=== PATIENT | female | born 1995 | race Caucasian/White ===

== ENCOUNTER → 2019-03-25 13:32 | Outpatient (BNVA) | payer OTHER, SELFPAY | PROVIDERS: Family Provider Family Medicine; PCP Family Medicine; Referring Provider Family Medicine; Visit Provider Nurse Practitioner Family | DX: R53.83 Other fatigue (principal) | CPT/HCPCS: 87804 ==

== ENCOUNTER → 2019-07-22 15:35 | Outpatient (BNVA) | payer OTHER, SELFPAY | PROVIDERS: Family Provider Family Medicine; PCP Family Medicine; Visit Provider Nurse Practitioner | DX: R30.0 Dysuria (principal); Z71.89 Other specified counseling | CPT/HCPCS: 80053; 81000 ==

== ENCOUNTER 2021-09-16 13:45 | Emergency (ER) | payer OTHER, SELFPAY ==
[2021-09-16 14:01] VITALS: BP 127/73; PULSE 78; RESP 16; TEMP 36.9; O2SAT 97
--- NOTE | 2021-09-16 14:06 | XRR_ITS ---
PROCEDURE INFORMATION: Exam: XR Left Hand Exam date and time: 09/16/2021 2:22 PM Age: 25 years old Clinical indication: Injury or trauma; Other: Table saw; Amputation, traumatic; Left index finger; Additional info: 2nd digit amputation TECHNIQUE: Imaging protocol: Radiologic exam of the Left hand. Views: 3 or more views. COMPARISON: No relevant prior studies available. FINDINGS: Bones/joints: There is a traumatic amputation at the level of the proximal shaft of the middle phalange the index finger. The rim need bone shows comminuted fracture. New no additional bony abnormalities are seen. Soft tissues: Soft tissue edema near the proximal interphalangeal joint of the index finger. XR/XR hand LT min 3V* [id number] IMPRESSION: 1. Traumatic amputation of the index finger in the proximal aspect of the middle phalange. 2. Comminuted fracture of the remnant bone in the middle phalange. 3. Soft tissue effusion around the proximal interphalangeal joint of the middle phalange
[2021-09-16 14:09] VITALS: RESP 16
[2021-09-16] MEDS: ondansetron 2 mg/ML SDV 2 mL 4 MG IVP (14:09)
[2021-09-16] MEDS: morphine 4 mg/mL SDV 1 mL IVP (14:09)
[2021-09-16] MEDS: tetanus-dipt-pertussis 0.5 mL SDV IM (14:10)
--- NOTE | 2021-09-16 14:11 | ED_ITS ---
Documented by User: KAE Cazares 09/16/21 16:18 HPI - Extremity Injury (Upper) General: Chief Complaint: Trauma Stated Complaint: left hand injury Time Seen by Provider: 09/16/21 13:49 Source: patient and family Mode of arrival: wheelchair Limitations: no limitations History of Present Illness: Patient is a 25-year-old female who presents to ED today for evaluation of an amputation of her left index finger that she sustained just prior to arrival after using a table saw. Last tetanus is unknown. She states they looked for amputated fragment but was unable to find it. Patient is right-handed. She has no other injuries or complaints at this time. MD complaint: injury to: left and finger Onset (ago): hour(s) Other Extremity Injury: Left: fingers Other injuries: none Handedness: right Place: home Severity: severe Severity scale (1-10): >10 Context: other (amputation) Associated symptoms: Reports no associated symptoms Treatments prior to arrival: bandage Review of Systems Card: Denies: chest pain Resp: Denies: dyspnea GI: Denies: abdominal pain, nausea or vomiting Musc: Reports: extremity pain (L index finger) [facility] ED PFSH: Social History Smoking and tobacco status: never smoked Alcohol intake: never Physical Exam Const: COMMON NORMALS: patient oriented x3, no limitations and alert GENERAL APPEARANCE: cooperative and in distress (significant discomfort secondary to pain) NUTRITIONAL APPEARANCE: obese ORIENTATION/CONSCIOUSNESS: Yes awake, Yes oriented to person, Yes oriented to place and Yes oriented to time Extremity: GENERAL: Yes normal exam except as noted LEFT UPPER EXTREMITY: Yes hand & digits OTHER: pt has a complete amputation of her L index finger at the level of the middle phalanx; bleeding controlled Neuro: COMMON NORMALS: patient oriented x3 SENSORIUM/ORIENTATION: Yes alert, Yes oriented to person, Yes oriented to place and Yes oriented to time Course Consultations: Consultation #1: Dr. Rae-recommends consultation with hand surgeon regarding the need for ray resection-after speaking to Dr. Crook she graciously agrees to see patient and recommends copious irrigation, dress, and will see in office this week Consultation #2: Dr. Crook-hand surgery-states he would amputate/flap at PIP joint and would not perform ray resection unless patient preferred it Vital Signs: Vital signs: Vital Signs Temperature 98.5 F 09/16/21 14:01 Pulse Rate 69 09/16/21 16:22 Respiratory Rate 16 09/16/21 16:22 Blood Pressure 141/91 09/16/21 16:22 Pulse Oximetry 95 09/16/21 16:22 MDM - Extremity Injury (Upper) Medical Decision Making Patient is a nice 25-year-old female here for a left index finger amputation at the level of her middle phalanx. I have consulted with our orthopedic surgeon Dr. Rae as well as Dr. Crook hand surgery in [place]. Dr. Crook stated he would try to flap digit at the PIP joint and would not perform a ray resection unless the patient specifically requests. He stated finger can always be revised and ray resection can be performed at a later date if patient decides. Dr. Rae stated she will see patient in office as patient states she would like to keep as much of the finger as possible . Dr. Mckeon also evaluated patient and agrees with assessment/plan. Tetanus updated. She was given Ancef prior to discharge. Lab Data Radiology Impressions Hand X-Ray 09/16/21 14:06 IMPRESSION: 1. Traumatic amputation of the index finger in the proximal aspect of the middle phalange. 2. Comminuted fracture of the remnant bone in the middle phalange. 3. Soft tissue effusion around the proximal interphalangeal joint of the middle phalange Discharge Plan Discharge Patient Disposition: Home Clinical Impression: Amputation of left index finger Condition: Stable Prescriptions: New hydrocodone-acetaminophen 5-325 mg tablet 1 tab PO Q4H PRN (Reason: pain) Qty: 20 0RF cephalexin 500 mg capsule 500 mg PO Q6H 7 Days Qty: 28 0RF ondansetron 4 mg tablet,disintegrating 4 mg PO Q8H PRN (Reason: nausea and vomiting) Qty: 14 0RF No Action citalopram 40 mg tablet 40 mg PO DAILY 0RF norgestimate-ethinyl estradiol 0.18/0.215/0.25 mg-25 mcg tablet 1 tab PO DAILY 0RF Zyrtec 10 mg Tablet 10 mg PO DAILY 0RF Discharge Orders: Discharge ED (Routine); Ordered 09/16/21 Ordered By: Eliza Joseph Referrals: Savannah Rae MD [Physician] - Russ Chaudhary MD [Primary Care Provider] - Patient Instructions: Finger Amputation (Surgical), Finger Amputation (ED), Opioid Safety Activity Restrictions/Additional Instructions: As we discussed please contact Dr. Rae's office tomorrow morning so they can give you a date/time to be seen this week. You have been instructed on dressing changes. Fill antibiotics today and start them immediately. Coding Level of Care Code ED Receiving Weigher for Chg Fwd Exam Expanded Problem Focused Documented by User: Ronal Mckeon DO 09/16/21 16:55 HPI - Extremity Injury (Upper) General: Chief Complaint: Trauma Stated Complaint: left hand injury Time Seen by Provider: 09/16/21 13:49 [facility] ED PFSH: Social History Smoking and tobacco status: never smoked Alcohol intake: never Course ED course: I was attending emergency physician on duty when this patient was seen and evaluated by the advanced nurse practitioner. This patient suffered an injury to her nondominant left hand. Her index finger was amputated just above the proximal interphalangeal joint. Bleeding was controlled prior to arrival. The patient received appropriate treatment with antibiotics, pain control and tetanus update. Orthopedics was consulted who agreed to care for the patient in complete her revision. Patient was placed in a bulky dressing and discharged for outpatient follow-up. Agree with the plan of care as outlined. Vital Signs: Vital signs: Vital Signs Temperature 98.5 F 09/16/21 14:01 Pulse Rate 69 09/16/21 16:22 Respiratory Rate 16 09/16/21 16:22 Blood Pressure 141/91 09/16/21 16:22 Pulse Oximetry 95 09/16/21 16:22 MDM - Extremity Injury (Upper) Lab Data Radiology Impressions Hand X-Ray 09/16/21 14:06 IMPRESSION: 1. Traumatic amputation of the index finger in the proximal aspect of the middle phalange. 2. Comminuted fracture of the remnant bone in the middle phalange. 3. Soft tissue effusion around the proximal interphalangeal joint of the middle phalange Discharge Plan Discharge Patient Disposition: Home Clinical Impression: Amputation of left index finger Condition: Stable Prescriptions: New hydrocodone-acetaminophen 5-325 mg tablet 1 tab PO Q4H PRN (Reason: pain) Qty: 20 0RF cephalexin 500 mg capsule 500 mg PO Q6H 7 Days Qty: 28 0RF ondansetron 4 mg tablet,disintegrating 4 mg PO Q8H PRN (Reason: nausea and vomiting) Qty: 14 0RF No Action citalopram 40 mg tablet 40 mg PO DAILY 0RF norgestimate-ethinyl estradiol 0.18/0.215/0.25 mg-25 mcg tablet 1 tab PO DAILY 0RF Zyrtec 10 mg Tablet 10 mg PO DAILY 0RF Discharge Orders: Discharge ED (Routine); Ordered 09/16/21 Ordered By: Eliza Joseph Referrals: Savannah Rae MD [Physician] - Russ Chaudhary MD [Primary Care Provider] - Patient Instructions: Finger Amputation (Surgical), Finger Amputation (ED), Opioid Safety Activity Restrictions/Additional Instructions: As we discussed please contact Dr. Rae's office tomorrow morning so they can give you a date/time to be seen this week. You have been instructed on dressing changes. Fill antibiotics today and start them immediately. Coding Level of Care Code ED Receiving Weigher for Ayang Fwd Exam Expanded Problem Focused
[2021-09-16] MEDS: ceFAZolin 2,000 MG in sodium chloride 0.9% (plus) 50 ML 100 MG IV (14:18)
[2021-09-16 14:29] VITALS: RESP 18
[2021-09-16] MEDS: HYDROmorphone 1 mg/mL INJ 1 mL IVP ×2 (14:29→15:36)
[2021-09-16 15:36] VITALS: RESP 16
--- NOTE | 2021-09-16 16:10 | PC.NURSE ---
left 2nd finger irrigaited with 500ml of ns and dressed with xeroform, 4x4, and keshawn.
[2021-09-16 16:22] VITALS: BP 141/91; PULSE 69; RESP 16; O2SAT 95
--- NOTE | 2021-09-17 13:57 | DCPLANNER ---
Addendum entered by Amalia Perea 09/25/21 14:44: Patient had a follow up appointment scheduled for 09.17.[address] Rae at ortho - patient did attend appointment. Original Note: manager rn case had message to schedule a follow up appointment for patient with ortho. manager rn case sent patients information to the front office of ortho. Patients information will be printed and reviewed. Clinic will call patient with appointment information. Clinic will call patient with appointment information.
== END 2021-09-16 16:25 | disposition home or self-care (01) ==
PROVIDERS: Emergency Provider Physician Assistant; PCP Family Medicine
DX: S68.111A Complete traumatic metacarpophalangeal amputation of left index finger, initial encounter (principal); W27.0XXA Contact with workbench tool, initial encounter; Z23 Encounter for immunization
CPT/HCPCS: 73130; 90471; 90715; 96374; 96375; 96376; 99284; A6446; J1170; J2270; J2405

== ENCOUNTER 2021-09-18 05:38 | Day surgery (SDC) | payer OTHER, SELFPAY ==
[2021-09-17 12:58] VITALS: BMI 32.5
[2021-09-18] VITALS (9 sets, daily range): BP systolic 136–181; BP diastolic 83–118; PULSE 71–91; RESP 14–28; TEMP 36.2–36.6; O2SAT 90–97
[2021-09-18] MEDS: CELEcoxib 200 mg Capsule 400 MG PO (06:26)
[2021-09-18] MEDS: acetaminophen 1,000 MG/100 ML PIGGYBACK 400 MG IV (06:30)
[2021-09-18] MEDS: sodium chloride 0.9% 1,000 ML 30 ML IV (06:40)
--- NOTE | 2021-09-18 06:55 | W.PM.OPSUD ---
Surgery/Procedure H&P Update DATE OF PROCEDURE: September 18, 2021 DATE H&P PERFORMED: 09/17/21 H&P UPDATE INFORMATION: I have reviewed H&P completed within last 30 days, I have examined patient prior to procedure, No changes to prior documentation and H&P is in [facility] on date indicated PREOP DIAGNOSIS: Partial amputation left index finger PLANNED PROCEDURE: Operation Date: 09/18/21 07:00 Proposed Procedures p LEFT INDEX FINGER PREVISION AMPUTATION 61194,S68.11A(Left) - Savannah Rae MD Related Problem List Diagnoses (1) Amputation of left index finger:
[2021-09-18] MEDS: ceFAZolin 2,000 MG in sodium chloride 0.9% (plus) 50 ML 100 MG IV (07:02)
--- NOTE | 2021-09-18 07:57 | ANES.PREANE2 ---
Pre-Anesthetic Assessment Height/Weight: Height 1.83 m Weight 108.862 kg Temp Pulse Resp BP Pulse Ox 97.9 F 74 18 146/97 97 09/18/21 06:45 09/18/21 06:45 09/18/21 06:45 09/18/21 06:45 09/18/21 06:45 Preop Diagnosis: Partial amputation left index finger Operation Date: 09/18/21 07:00 Proposed Procedures p LEFT INDEX FINGER PREVISION AMPUTATION 60439,S68.11A(Left) - Savannah Rae MD Familial anesthetic complications: None Was Beta Juan taken within 24 hours: N/A Was Clonidine taken within 24 hours: N/A Last intake: Intake Last Liquid Date 09/17/21 Last Liquid Time 23:30 Last Solid Date 09/17/21 Last Solid Time 23:30 Social No alcohol and No tobacco Exam alert, oriented x 3, clear to auscultation bilaterally and regular rate & rhythm Airway Submandibular: within normal limits Cervical ROM: within normal limits Mallampati: Class II Dentition: full History/ROS No significant history except as noted Metabolic Morbid Obesity Anesthetic Plan ASA status: 2 Anesthesia: General Medications/Allergies Home Medications Medication Instructions Recorded Confirmed Last Taken Type citalopram 40 mg tablet 40 mg PO DAILY 03/25/19 09/18/21 09/17/21 History norgestimate 0.18 mg/0.215 mg/0.25 1 tab PO DAILY 03/25/19 09/18/21 09/17/21 History mg-ethinyl estradiol 25 mcg tablet cephalexin 500 mg capsule 500 mg PO Q6H 7 Days #28 cap 09/16/21 09/18/21 09/17/21 Rx cetirizine 10 mg tablet (Zyrtec) 10 mg PO DAILY 09/16/21 09/18/21 09/17/21 History hydrocodone 5 mg-acetaminophen 325 1 tab PO Q4H PRN #20 tab 09/16/21 09/18/21 09/17/21 Rx mg tablet ondansetron 4 mg disintegrating 4 mg PO Q8H PRN #14 tab 09/16/21 09/18/21 Unknown Rx tablet Allergies Allergy/AdvReac Type Severity Reaction Status Date / Time No Known Allergies Allergy Verified 09/17/21 12:57 PFSH Anesthesia Social History Smoking and tobacco status: never smoked Alcohol intake: never Female Reproductive History Date of last menstrual period: 09/03/21 Data Anesthesia Cardiac Studies: No Data to Display
[2021-09-18] MEDS: silvasorb gel 44.4 mL 1 APPLIC TOPICAL (08:03)
--- NOTE | 2021-09-18 08:37 | PM.OP ---
Operative Report Date of procedure: September 18, 2021 Pre-op diagnosis: Partial amputation left index finger Post-op diagnosis: same Post-op diagnosis: Partial amputation left index finger Procedure done: Revision left index finger amputation with local flap Implants: None Specimens removed/disposition: None Surgeon: Savannah Rae Electrical Design Engineer: None Anesthesia: General (Per LMA, ASA 2) Estimated blood loss (mL): 5 Tourniquet time (min): 8 (At 250 mmHg) IV fluids (mL): 400 Urine output (mL): 0 (No Duval) Complications: None Findings: Comminuted fracture of the remaining portion of the middle phalanx of the left index finger. Condition: stable Disposition: PACU (Then return to same-day surgery) Brief History: This is a new 25 year old female patient who is here today for an evaluation of her left index finger injury. She states that on 09/16/21, she was ripping a 2x4 with a table saw.? She states she looked down and noticed she had blood on her glove and the tip of her finger was gone. She states that she did not feel her finger get cut off by the saw. She states that she immediately went to the ED where her remaining finger was cleaned up and wrapped in sterile dressings. She states her pain is reproduced by touching her finger. She denies any relieving factors today. Procedure: Patient was brought to the operating theater. She was placed on the operating room table. General anesthesia per LMA, ASA 2, was administered without difficulty. Patient tolerated it well. Patient received 2 g of Ancef preoperatively as well. A tourniquet which was placed high on the arm was elevated briefly for exposure. The tourniquet time was 8 minutes at 250 mmHg. Surgical pause was performed prior to commencement of the surgical procedure. At the time of the surgical pause we identified the site and side of surgery. We also identified the patient's identity and appropriate administration of IV antibiotics. Following the surgical pause, the amputation was evaluated. Skin edges were freshened using a scalpel. Bone was evaluated and the patient was found to have a comminuted fracture of the remaining portion of the middle phalanx. It was intra-articular and displaced. The remaining bone fragments were removed. Following this, the wound was irrigated. Flexor and extensor tendons were approximated over the tip of the finger. Closure was then accomplished with the volar flap being brought up over the end of the proximal phalanx. No bone resection was accomplished from the proximal phalanx. Closure was accomplished with 3-0 nylon in an interrupted mattress type fashion. Following this, the hand was cleaned. SilvaSorb was placed. Dressing was placed consisting of a fluffed fluffs and tube gauze. The patient was returned to recovery in satisfactory condition. She will be discharged home to follow-up with me in the office. There were no complications and no specimens. Related Problem List Diagnoses (1) Amputation of left index finger:
[2021-09-18] MEDS: HYDROcodone-acetaminophen 5-325 mg Tablet 1 TAB PO (09:44)
--- NOTE | 2021-09-18 16:18 | ANE.PACU2 ---
Inpatient post-anesthesia follow up: Airway intact: Yes Vital signs: Temperature 97.2 F Pulse Rate 81 Respiratory Rate 18 Blood Pressure 136/83 Pulse Oximetry 95 Oxygen Delivery Me thod Room Air Oxygen Flow Rate 8 Fraction of Inspir ed Oxygen Hydration adequate: Yes Nausea and vomiting: No Pain level: 2 Mental status: Baseline
== END 2021-09-18 09:50 | disposition home or self-care (01) ==
PROVIDERS: PCP Family Medicine; Visit Provider Specialist
PROC: (CPT 26951; principal; 2021-09-18 07:00)
DX: S68.111A Complete traumatic metacarpophalangeal amputation of left index finger, initial encounter (principal); W31.2XXA Contact with powered woodworking and forming machines, initial encounter; E66.01 Morbid (severe) obesity due to excess calories; Z68.32 Body mass index [BMI] 32.0-32.9, adult
CPT/HCPCS: 26952; J1100; J1200; J1885; J2370; J2405; J2704; J3010; J7030

== ENCOUNTER → 2022-04-30 10:53 | Outpatient (BNVA) | payer BC, SELFPAY | PROVIDERS: PCP Family Medicine; Visit Provider Family Medicine | DX: I10 Essential (primary) hypertension (principal) | CPT/HCPCS: 80048 ==

== ENCOUNTER → 2022-10-28 13:01 | Outpatient (BNVA) | payer BC, MEDICAID, SELFPAY | PROVIDERS: PCP Family Medicine; Visit Provider Family Medicine | DX: I10 Essential (primary) hypertension (principal); F32.A Depression, unspecified; M19.90 Unspecified osteoarthritis, unspecified site | CPT/HCPCS: 80053; 84550; 85025; 86140; 86618; 86666; 86757 ==

== ENCOUNTER → 2022-11-25 15:04 | Outpatient (BNVA) | payer BC, MEDICAID, SELFPAY | PROVIDERS: PCP Family Medicine; Visit Provider Family Medicine | DX: M10.9 Gout, unspecified (principal); I10 Essential (primary) hypertension; F32.A Depression, unspecified | CPT/HCPCS: 84550; 86140 ==

== ENCOUNTER → 2023-08-17 10:11 | Outpatient (BNVA) | payer BC, MEDICAID, SELFPAY | PROVIDERS: PCP Family Medicine; Visit Provider Nurse Practitioner | DX: J02.9 Acute pharyngitis, unspecified (principal) | CPT/HCPCS: 87880 ==

== ENCOUNTER → 2023-11-18 08:32 | Outpatient (BNVA) | payer BC, MEDICAID, SELFPAY | PROVIDERS: PCP Family Medicine; Visit Provider Clinical Nurse Specialist Adult Health | DX: Z01.419 Encounter for gynecological examination (general) (routine) without abnormal findings (principal) | CPT/HCPCS: 87491; 87591; 87624 ==

== ENCOUNTER → 2024-01-08 11:00 | Outpatient (BNVA) | payer BC, MEDICAID, SELFPAY | PROVIDERS: PCP Family Medicine | DX: R50.9 Fever, unspecified (principal) | CPT/HCPCS: 87400; 87426 ==

== ENCOUNTER → 2024-09-14 13:17 | Outpatient (BNVA) | payer OTHER, BC, MEDICAID, SELFPAY | PROVIDERS: PCP Family Medicine; Visit Provider Family Medicine | DX: R11.0 Nausea (principal); R10.9 Unspecified abdominal pain | CPT/HCPCS: 80053; 83690; 85025; 86140 ==

== ENCOUNTER → 2024-09-20 09:18 | Outpatient (BNVA) | payer OTHER, BC, MEDICAID, SELFPAY | PROVIDERS: PCP Family Medicine; Visit Provider Family Medicine | DX: R10.9 Unspecified abdominal pain (principal); R11.0 Nausea | CPT/HCPCS: 87177; 87209; 87493 ==

== ENCOUNTER 2025-02-05 13:33 | Emergency (ER) | payer OTHER, BC, MEDICAID, SELFPAY ==
--- OUTSIDE RECORDS SUMMARY | 2025-02-05 13:37 | XMS_ITS | Clinical Summary ---
[facility] Address [address] [place] [address] Care Team Providers Care Community Relations Representative Name Role Phone Unavailable Primary Care Provider Unavailabl e Immunizations Immunization Administration Dates Next Due (ADACEL/BOOSTRIX)(10 YR UP) TDAP VACCINE, 0.5ML, IM 10/14/2008 (M-M-R II/PRIORIX)(12 MO UP) MEASLES, MUMPS AND RUBELLA VIRUS VACCINE, 0.5 ML IM/SUBCUT 01/31/1999,11/18/1995 Dt Dtp Dtap Vaccine 01/31/1999, 7,09/17/1995,06/24,02/04/1995 HIB, Unspecified Formulation 05/05/1996, 09/17/1995,06/25/1995,02/04 Hepatitis A Vaccine 10/14/2008 Hepatitis B Vaccine 06/25/1995,02/04/1995,1994 IPV/OPV 01/31/1999, 6,06/25/1995,02/04 Meningococcal A Conjugate Vaccine IM 10/14/2008 Social History Tobacco Use Types Packs/Day Years Used Date Smoking Tobacco: Never Assessed Comments Unknown Sex and Gender Information Value Date Recorded Sex Assigned at Not on file 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
--- OUTSIDE RECORDS SUMMARY | 2025-02-05 13:37 | XMS_ITS | Encounter Summary ---
Author Organization [facility] Address [address] [place] [address] Care Team Providers Care Psychological Science Professor Name Role Phone Unavailable Primary Care Provider Unavailabl e Encounter Details Date Type Department Care Team (Latest Contact Info) Description 04/24/2001 Outpatient Historical [facility] Gen Spec Surg 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
[2025-02-05 13:40] VITALS: BP 148/91; PULSE 92; RESP 17; TEMP 36.8; O2SAT 97; BMI 34.8
--- NOTE | 2025-02-05 13:57 | ED_ITS ---
HPI - Epistaxis General: Chief complaint: Epistaxis Stated complaint: nose bleed Time Seen by Provider: 02/05/25 13:56 Source: patient Mode of arrival: ambulatory Limitations: no limitations History of Present Illness: 29-year-old female states she had a nose bleed on the right naris started roughly an hour ago. She states that she has not been able to get it to stop at home. She is not on any blood thinners denies any history of bleeding has not had nosebleeds in the past. She denies any trauma denies any pain. Related Data Home Medications ?Medication ?Instructions ?Recorded ?Confirmed cetirizine 10 mg tablet (Zyrtec) 10 mg PO DAILY 11/22/24 multivitamin (One Daily 1 tab PO DAILY 11/18/2311/02 Multivitamin tablet) Previous Rx's ?Medication ?Instructions ?Recorded hydrochlorothiazide 25 mg tablet 25 mg PO DAILY #90 ta bs 08/05/24 losartan 25 mg tablet 25 mg PO DAILY #90 tabs 07/25 omeprazole 20 mg capsule,delayed 20 mg PO BID #60 caps 09/14/24 release ondansetron 4 mg disintegrating 4 mg PO Q8H PRN nausea and 11/22/24 tablet vomiting #10 tabs norgestimate-ethinyl estradiol See Rx Instructions .Ro conf[place] salish 12/26/24 0.18mg/0.215mg/0.25mg-0.035mg(28)tablet .COMPLEX #28 t abs (Tri-Sprintec (28)) citalopram 40 mg tablet 40 mg PO DAILY #90 tabs 06/25 Allergies Allergy/AdvReac Type Severity Reaction Status Date / Time No Known Allergies Allergy Verified 02/05/25 13:46 Review of Systems ENMT: Reports: epistaxis PFSH ED PFSH: Medical History Uric acid arthropathy Hypertension Depression Surgical History History of amputation of finger of left hand accidental via a table saw History of breast surgery right breast was reshaped, left breast has an implant. Family History Family/Other Breast cancer patient's aunt and great aunt Grandfather Cancer esophageal cancer Mother Hypertension Father Hypertension Denies family history of Colon cancer Ovarian cancer Diabetes mellitus, type 2 Clotting disorder Hyperthyroidism Hypothyroidism Anesthesia complication Bleeding disorder Social History Smoking and tobacco/nicotine status: never used tobacco/nicotine Quit status (tobacco/nicotine): has quit using Former quit date comment: 4 year history of smoking intermittently Alcohol intake: never Substance/Drug Use: never Marital status: Single Number of children: 0 Female Reproductive History: Date of last menstrual period: 01/29/95 Physical Exam Const: COMMON NORMALS: no acute distress, patient oriented x3 and healthy appearing HENMT: COMMON NORMALS: normocephalic and atraumatic HEAD & SCALP: nor mocephalic and atraumatic OTHER: Slight bleeding out of right nare Neck/C-Spine: COMMON NORMALS: full ROM and supple Chest: COMMONS NORMALS: normal inspection of the chest Resp: COMMON NORMALS: normal respiratory effort Cardio: COMMON NORMALS: regular rate RATE: regular rate Extremity: COMMON NORMALS: normal to inspection and full ROM Neuro: COMMON NORMALS: patient oriented x3, moves all extremities and no focal motor deficits Psych: COMMON NORMALS: mental status grossly normal, Normal thought process present and cooperative THOUGHT PROCESS: Normal thought process present Skin: COMMON NORMALS: no rashes or lesions noted and no wounds GENERAL SKIN EXAM: no rashes or lesions noted Course Vital Signs: Vital signs: Vital Signs Temperature 98.2 F 02/05/25 13:40 Pulse Rate 92 02/05/25 13:40 Respiratory Rate 17 02/05/25 13:40 Blood Pressure 148/91 02/05/25 13:40 Pulse Oximetry 97 02/05/25 13:40 Oxygen Delivery Me thod Room Air 02/05/25 13:40 MDM - Epistaxis Medical Decision Making Patient presents here with epistaxis was able to get her nose to stop bleeding with a nasal clamp no signs of active bleeding at this time she stable for discharge follow-up with PCP return if worsening. Medical Records I reviewed the patient's medical records. No radiology studies performed this visit Discharge Plan Discharge Patient Disposition: Home Clinical Impression: Epistaxis Condition: Stable Prescriptions: No Action multivitamin [One Daily Multivitamin] Tablet 1 tab PO DAILY omeprazole 20 mg capsule,delayed release(DR/EC) 20 mg PO BID Qty: 60 11RF ondansetron 4 mg tablet,disintegrating 4 mg PO Q8H PRN (Reason: nausea and vomiting) Qty: 10 0RF hydrochlorothiazide 25 mg tablet 25 mg PO DAILY Qty: 90 11RF losartan 25 mg tablet 25 mg PO DAILY Qty: 90 11RF norgestimate-ethinyl estradiol [Tri-Sprintec (28)] 0.18/0.215/0.25 mg-0.035mg (28) tablet See Rx Instructions .ROUTE .COMPLEX Qty: 28 3RF Dose Instruction: TAKE 1 TABLET BY MOUTH EVERY DAY DIRECTED Rx Instructions: TAKE 1 TABLET BY MOUTH EVERY DAY DIRECTED citalopram 40 mg tablet 40 mg PO DAILY Qty: 90 3RF cetirizine [Zyrtec] 10 mg Tablet 10 mg PO DAILY Discharge Orders: Discharge ED (Routine); Ordered 02/05/25 Ordered By: Vicente Dumont Referrals: Russ Chaudhary MD [Primary Care Provider, Family Practice] - 4-7 days Discharge Diet: Advance as tolerated Discharge Activity: Resume usual activity Patient Instructions: Nosebleed (ED) Print Language: Portuguese Coding Level of Care Code ED Portable Trackman for Marcos Dang
== END 2025-02-05 14:25 | disposition home or self-care (01) ==
PROVIDERS: Emergency Provider Emergency Medicine; PCP Family Medicine
DX: R04.0 Epistaxis (principal); Z87.891 Personal history of nicotine dependence; I10 Essential (primary) hypertension
CPT/HCPCS: 99283; J9999